=== PATIENT | female | born 1980 | race Caucasian/White ===

== ENCOUNTER 2025-01-15 23:51 | Emergency (ER) | payer SELFPAY ==
[2025-01-15 23:54] VITALS: BP 133/83; PULSE 92; RESP 16; TEMP 36.7; O2SAT 98; BMI 20.7
--- NOTE | 2025-01-16 00:05 | ED_ITS ---
HPI - Abdominal Pain 2 General: Chief Complaint: Abdominal Pain Stated Complaint: ABD PAIN Time Seen by Provider: 01/15/25 23:53 History of Present Illness: 44-year-old female with no significant p ast medical history who presents the emergency room with right lower quadrant abdominal pain by ambulance. [facility] is from [facility]. She has a started earlier today. She has had nausea but no vomiting. She has fairly severe pain. She think she had a fever earlier. No previous abdominal surgeries. No dysuria. Related Data Previous Rx's ?Medication ?Instructions ?Recorded cefdinir 300 mg capsule 300 mg PO BID 10 days #20 ca ps 01/16/25 diclofenac sodium 50 mg 50 mg PO BID PRN pain #14 ta bs 01/16/25 tablet,delayed release ondansetron 4 mg disintegrating 4 mg PO Q8H PRN nausea and 01/16/25 tablet vomiting #10 tabs Allergies Allergy/AdvReac Type Severity Reaction Status Date / Time No Known Allergies Allergy Verified 01/16/25 01:19 Review of Systems 2 Narrative: Constitutional symptoms: Negative except as documented in HPI. Skin symptoms: Negative except as documented in HPI. Eye symptoms: Negative except as documented in HPI. ENMT symptoms: Negative except as documented in HPI. Respiratory symptoms: Negative except as documented in HPI. Cardiovascular symptoms: Negative except as documented in HPI. Gastrointestinal symptoms: Negative except as documented in HPI. Genitourinary symptoms: Negative except as documented in HPI. Musculoskeletal symptoms: Negative except as documented in HPI. Neurologic symptoms: Negative except as documented in HPI. Psychiatric symptoms: Negative except as documented in HPI. Endocrine symptoms: Negative except as documented in HPI. Physical Exam 2 Narrative: EXAM NARRATIVE: General: Alert, no acute distress. Skin: Warm, pale and slightly diaphoretic Head: Normocephalic, atraumatic. Neck: Supple, trachea midline. Eye: Extraocular movements are intact. Ears, nose, mouth and throat: mucosa moist. Cardiovascular: Regular, Normal peripheral perfusion. Respiratory: Lungs are clear to auscultation, respirations are non-labored, breath sounds are equal, Symmetrical chest wall expansion. Gastrointestinal: Soft, moderate right lower quadrant tenderness to palpation, Non distended Musculoskeletal: Normal ROM, no deformity. Neurological: Alert and oriented, No focal neurological deficit observed. Psychiatric: Cooperative, appropriate mood & affect. Course 2 Vital Signs: Vital signs: Vital Signs Temperature 98.0 F 01/15/25 23:54 Pulse Rate 78 01/16/25 02:32 Respiratory Rate 16 01/16/25 02:32 Blood Pressure 133/64 01/16/25 02:32 Pulse Oximetry 98 01/16/25 02:32 Oxygen Delivery Me thod Room Air 01/15/25 23:54 MDM - Abdominal Pain Medical Decision Making Medical decision making: Differential diagnosis for this patient with right lower quadrant abdominal pain including but not limited to and based on the above HPI, review of systems and physical exam: Ureterolithiasis. Urinary tract infection. Appendicitis. colitis. small bowel obstruction. Crohn's flare. Pancreatitis. Cholelithiasis or cholecystitis. Hepatitis. Diverticulitis. Constipation. ovarian cyst. ovarian torsion Workup: Orders were placed to evaluate differential diagnosis based on the above differential, HPI and exam: Lab Review: Laboratory results were reviewed and interpreted by myself the emergency room physician. Mild leukocytosis with white count of 13,000. No anemia. No renal failure. Urinalysis is positive for urinary tract infection with greater than 100 whites, some hematuria and 4+ bacteria. CT of the abdomen pelvis: Consistent with ascending urinary tract infection. No other acute findings. This was reviewed and interpreted by myself the emergency room physician. I also reviewed the radiology report. I reviewed the patient's medical record Reexamination: Patient remained stable. No increased work of breathing. No altered mental status. No focal motor deficits. Assessment and plan: Urinary tract infection Abdominal pain. ?IV morphine, IV Rocephin and IV fluids. - Discharged home - Discussed plan with patient. Answered any questions. - Evaluation and treatment of this problem were appropriate in the emergency setting. Lab Data 01/16/25 01:11 01/16/25 01:11 Labs/Radiology: Radiology Impressions Abdomen/Pelvis CT 01/16/25 01:06 IMPRESSION: 1. Given the asymmetric right collecting system urothelial enhancement changes, suspicion is raised for an ascending right side urinary tract infection. 2. Urinalysis correlation recommended. Laboratory Results WBC 13.47 10^3/uL (3.29-11.43) H 01/16/25 01:11 RBC 5.28 10^6/uL (3.85-5.65) 01/16/25 01:11 Hgb 15.70 g/dL (11.27-16.99) 01/16/25 01:11 Hct 48.0 % (36-47) H 01/16/25 01:11 MCV 90.9 fl (85-98) 01/16/25 01:11 MCH 29.7 pg (27-33) 01/16/25 01:11 MCHC 32.7 g/dL (30-55) 01/16/25 01:11 RDW 12.8 % (12.1-15.1) 01/16/25 01:11 Plt Count 274 10^3/cmm (157-399) 01/16/25 01:11 MPV 10.3 fL (7.4-10.4) 01/16/25 01:11 Neut % (Auto) 83.6 % 01/16/25 01:11 Lymph % (Auto) 9.9 % 01/16/25 01:11 Sampson % (Auto) 4.8 % 01/16/25 01:11 Eos % (Auto) 0.5 % 01/16/25 01:11 Baso % (Auto) 0.7 % 01/16/25 01:11 Neut # (Auto) 11.24 10^3/uL (1.8-7.7) H 01/16/25 01:11 Lymph # (Auto) 1.3 10^3/uL (0.8-4.8) 01/16/25 01:11 Sampson # (Auto) 0.7 10^3/uL (0.2-0.9) 01/16/25 01:11 Eos # (Auto) 0.1 10^3/uL (0.0-0.8) 01/16/25 01:11 Baso # (Auto) 0.1 10^3/uL (0.0-0.1) 01/16/25 01:11 Nucleated RBC % (auto) 0 % 01/16/25 01:11 Nucleated RBCs # 0.0 /100WBC 01/16/25 01:11 Sodium 136 mmol/L (136-145) 01/16/25 01:11 Potassium 4.6 mmol/L (3.5-5.1) 01/16/25 01:11 Chloride 100 mmol/L (98-107) 01/16/25 01:11 Carbon Dioxide 26 mmol/L (22-29) 01/16/25 01:11 Anion Gap 14.6 (5-19) 01/16/25 01:11 BUN 11 mg/dL (6-20) 01/16/25 01:11 Creatinine 0.7 mg/dL (0.5-0.9) 01/16/25 01:11 GFR Calculation 90.9 mL/min (90-130) 01/16/25 01:11 Glucose 111 mg/dL (65-115) 01/16/25 01:11 Calculated Osmolality 282 mOsm/kg (285-295) L 01/16/25 01:11 Lactic Acid 1.4 mmol/L (0.5-2.2) 01/16/25 01:11 Calcium 9.3 mg/dL (8.5-10.5) 01/16/25 01:11 Total Bilirubin 0.5 mg/dL (0.15-1.2) 01/16/25 01:11 AST 26 U/L (0-32) 01/16/25 01:11 ALT 33 U/L (0-33) 01/16/25 01:11 Alkaline Phosphatase 107 U/L (35-105) H 01/16/25 01:11 C-Reactive Protein 3.0 mg/L (0.0-4.9) 01/16/25 01:11 Total Protein 7.3 g/dL (6.6-8.7) 01/16/25 01:11 Albumin 4.0 g/dL (3.5-5.2) 01/16/25 01:11 Globulin 3.3 g/dL (1.3-4.6) 01/16/25 01:11 Lipase 32 U/L (13-60) 01/16/25 01:11 HCG, Qual Cancelled 01/16/25 01:11 Urine Color Yellow (Yellow) 01/16/25 00:33 Urine Appearance Cloudy (CLEAR) A 01/16/25 00:33 Urine pH 7.5 (5-7) 01/16/25 00:33 Ur Specific [place] 1.011 (1.005-1.030) 01/16/25 00:33 Urine Protein 2+ (Negative) A 01/16/25 00:33 Urine Glucose (UA) Negative (Normal) 01/16/25 00:33 Urine Ketones Negative (Negative) 01/16/25 00:33 Urine Blood 2+ (Negative) A 01/16/25 00:33 Urine Nitrate Positive (Negative) A 01/16/25 00:33 Urine Bilirubin Negative (Negative) 01/16/25 00:33 Urine Urobilinogen 1.0 mg/dL (Negative) 01/16/25 00:33 Ur Leukocyte Esterase 3+ (Negative) A 01/16/25 00:33 Urine RBC 21-50 /hpf (0-2) H 01/16/25 00:33 Urine WBC >100 /hpf (0-5) H 01/16/25 00:33 Ur Squamous Epith Cells 0-5 /hpf (0-5) 01/16/25 00:33 Amorphous Sediment Not Reportable 01/16/25 00:33 Urine Bacteria 4+ /hpf (NONE) H 01/16/25 00:33 Hyaline Casts 0.81 /lpf 01/16/25 00:33 All radiology interpretation(s) finalized by discharge Discharge Plan Discharge Patient Disposition: Home Clinical Impression: Urinary tract infection Condition: Stable Prescriptions: New diclofenac sodium 50 mg tablet,delayed release (DR/EC) 50 mg PO BID PRN (Reason: pain) Qty: 14 0RF ondansetron 4 mg tablet,disintegrating 4 mg PO Q8H PRN (Reason: nausea and vomiting) Qty: 10 0RF cefdinir 300 mg capsule 300 mg PO BID 10 Days Qty: 20 0RF Discharge Orders: Discharge ED (Routine); Ordered 01/16/25 Ordered By: Linda Casey Discharge Diet: Usual diet Discharge Activity: Increase activity as tolerated Patient Instructions: Opioid Safety, Pain Management Activity Restrictions/Additional Instructions: Thank you for choosing [facility] for your healthcare needs today. You have been screened and evaluated and felt safe for discharge. Health conditions do change or evolve sometimes and as such it is important that you follow up with your Primary Doctor to be re checked, 3-5 days is a general good time frame for follow up. You are always welcome to return to the ED for re assessment if your symptoms are worsening or you have new concerns Print Language: Faroese Coding Level of Care Code ED Cold Meat Cook for Mikal Aly
[2025-01-16 00:27] VITALS: RESP 16; O2SAT 97
[2025-01-16] MEDS: morphine 4 mg/mL SDV 1 mL IVP (00:27)
[2025-01-16] MEDS: ondansetron hcl ODT 4 mg Tab PO (00:28)
[2025-01-16 00:39] LABS: Bilirubin Urine Negative (Negative); Blood Urine 2+ (Negative); Glucose Urine UA Negative (Normal); Ketones Urine Negative (Negative); Leukocyte Esterase Urine 3+ (Negative); Nitrate Urine Positive (Negative); Protein Urine 2+ (Negative); Specific Gravity, Urine 1.011 (1.005-1.030); Urine Appearance Cloudy (CLEAR); Urine Color Yellow (Yellow); pH Urine 7.5 (5-7)
[2025-01-16 00:45] LABS: Hyaline Casts Urine 0.81 /lpf; RBC Urine 21-50 /hpf (0-2); Squamous Epithelial Cell Urine 0-5 /hpf (0-5); WBC Urine >100 /hpf (0-5)
[2025-01-16 00:47] LABS: Bacteria Urine 4+ /hpf
[2025-01-16 00:48] LABS: Add Urine Culture? Yes
[2025-01-16 00:51] LABS: HCG Qualitative Urine. Negative (Negative)
--- NOTE | 2025-01-16 01:06 | CTR_ITS ---
PROCEDURE INFORMATION: Exam: CT Abdomen And Pelvis With Contrast Exam date and time: 01/16/2025 1:54 AM Age: 44 years old Clinical indication: Abdominal pain; Localized; Right lower quadrant (rlq); Additional info: Rlq abdominal pain TECHNIQUE: Imaging protocol: Computed tomography of the abdomen and pelvis with contrast. Radiation optimization: All CT scans at this facility use at least one of these dose optimization techniques: automated exposure control; mA and/or kV adjustment per patient size (includes targeted exams where dose is matched to clinical indication); or iterative reconstruction. Contrast material: OMNI 350; Contrast volume: 100 ml; Contrast route: INTRAVENOUS (IV); COMPARISON: No relevant prior studies available. RADIATION DOSE METRICS: Total DLP (mGy-cm): 304.7 FINDINGS: Liver: Normal. No mass. Gallbladder and biliary ducts: Normal. No calcified stones. No ductal dilation. Pancreas: Normal. No ductal dilation. Spleen: Normal. No splenomegaly. Adrenal glands: Normal. No mass. Kidneys and ureters: 3 mm diameter calcified nonobstructing right kidney posterior interpolar stone. There is asymmetric right collecting system urothelial enhancement changes diffusely. There is no significant perinephric inflammation. The renal parenchyma enhances symmetrically. No focal renal lesion is identified. Negative for hydroureteronephrosis. Stomach and bowel: Unremarkable. No obstruction. No mucosal thickening. Appendix: Normal appendix. Intraperitoneal space: Unremarkable. No free air. No significant fluid collection. Vasculature: Unremarkable. No abdominal aortic aneurysm. Lymph nodes: Unremarkable. No enlarged lymph nodes. Urinary bladder: Unremarkable as visualized. Reproductive: Unremarkable as visualized. Bones/joints: Unremarkable. No acute fracture. Soft tissues: Unremarkable. CT/CT abdomen pelvis w con* [id number] IMPRESSION: 1. Given the asymmetric right collecting system urothelial enhancement changes, suspicion is raised for an ascending right side urinary tract infection. 2. Urinalysis correlation recommended.
[2025-01-16 01:18] LABS: Basophils # 0.1 10^3/uL (0.0-0.1); Basophils % 0.7 %; Eosinophils # 0.1 10^3/uL (0.0-0.8); Eosinophils % 0.5 %; Lymphocytes # 1.3 10^3/uL (0.8-4.8); Lymphocytes % 9.9 %; Mean Corpuscular HGB Conc 32.7 g/dL (30-55); Mean Corpuscular Hemoglobin 29.7 pg (27-33); Mean Corpuscular Volume 90.9 fl (85-98); Mean Platelet Volume 10.3 fL (7.4-10.4); Monocytes # 0.7 10^3/uL (0.2-0.9); Monocytes % 4.8 %; Neutrophils # 11.24 10^3/uL (1.8-7.7); Neutrophils % 83.6 %; Nucleated Red Blood Cells % 0 %; Platelet Count 274 10^3/cmm (157-399); Red Blood Count 5.28 10^6/uL (3.85-5.65); Red Cell Distribution Width 12.8 % (12.1-15.1); White Blood Count 13.47 10^3/uL (3.29-11.43)
[2025-01-16] MEDS: cefTRIAXone 1,000 mg SDV 1000 MG IVP (01:23)
[2025-01-16 01:35] LABS: Alanine Aminotransferase 33 U/L (0-33); Alkaline Phosphatase 107 U/L (35-105); Anion Gap 14.6 (5-19); Aspartate Amino Transferase 26 U/L (0-32); Blood Urea Nitrogen 11 mg/dL (6-20); Calcium 9.3 mg/dL (8.5-10.5); Carbon Dioxide 26 mmol/L (22-29); Chloride 100 mmol/L (98-107); Creatinine Clr Calc Pharmacy 92.0908; Globulin 3.3 g/dL (1.3-4.6); Glomerular Filtration Rate 90.9 mL/min (90-130); Glucose 111 mg/dL (65-115); Lactic Sepsis W/Reflex 1.4 mmol/L (0.5-2.2); Lipase 32 U/L (13-60); Osmolality Calculated 282 mOsm/kg (285-295); Potassium 4.6 mmol/L (3.5-5.1); Sodium 136 mmol/L (136-145); Total Bilirubin 0.5 mg/dL (0.15-1.2); Total Protein 7.3 g/dL (6.6-8.7)
[2025-01-16] MEDS: iohexol 350 mg/mL 500 mL Btl (per mL) IV (01:56)
[2025-01-16 02:32] VITALS: BP 133/64; PULSE 78; RESP 16; O2SAT 98
== END 2025-01-16 02:35 | disposition home or self-care (01) ==
PROVIDERS: Emergency Provider Emergency Medicine
DX: N39.0 Urinary tract infection, site not specified (principal)
CPT/HCPCS: 36415; 74177; 80053; 81001; 81025; 83605; 83690; 85025; 86140; 87040; 87077; 87086; 87186; 96374; 96375; 99285; J0696; J2270; Q0162